=== PATIENT | female | born 1975 | race Caucasian/White ===

== ENCOUNTER → 2018-03-21 12:56 | Outpatient (CLI) | payer BC, SELFPAY | PROVIDERS: Family Provider Nurse Practitioner Family; PCP Nurse Practitioner Family; Visit Provider Orthopaedic Surgery | DX: M25.511 Pain in right shoulder (principal) | CPT/HCPCS: 73030 ==

== ENCOUNTER → 2018-03-27 15:02 | Outpatient (CLI) | payer BC, SELFPAY | PROVIDERS: Family Provider Nurse Practitioner Family; PCP Nurse Practitioner Family; Visit Provider Orthopaedic Surgery | DX: M75.101 Unspecified rotator cuff tear or rupture of right shoulder, not specified as traumatic (principal) | CPT/HCPCS: 73221 ==

== ENCOUNTER 2018-04-19 05:41 | Day surgery (SDC) | payer BC, SELFPAY ==
--- NOTE | 2018-04-17 15:24 | EKG12_ITS ---
Test Reason : PRE OP Blood Pressure : / mmHG Vent. Rate : 079 BPM Atrial Rate : 079 BPM P-R Int : 160 ms QRS Dur : 090 ms QT Int : 414 ms P-R-T Axes : 043 033 032 degrees QTc Int : 474 ms Normal sinus rhythm Normal ECG Confirmed by FERNANDO LOPEZ, SHAQ ([id number]), editor news DAIANA PAVON ([id number]) on 04/19/2018 3:18:18 PM Referred By: Susana Elder Confirmed By:SHAQ KING MD
[2018-04-17 16:03] LABS: Hematocrit 38.8 % (37-47); Hemoglobin 13.1 g/dl (12.0-15.0); Mean Corp Hgb Conc 33.8 g/gl (32-36); Mean Corpuscular Volume 91.7 fL (81-99); Mean Platelet Vol. 9.4 fl (6.2-12.0); Platelet Count 292 K/mm3 (150-450); RBC Distribution Width CV 12.7 % (11.6-14.6); RBC Distribution Width SD 41.8 fl (35.1-43.9); Red Blood Count 4.23 M/mm3 (4.2-5.4); White Blood Count 12.5 K/mm3 (4.4-11.0)
[2018-04-17 16:10] LABS: Scan Indicated on CBC? Y/N NO
[2018-04-17 16:32] LABS: Anion Gap 9 (5-15); BUN 11 mg/dL (7-18); BUN/Creat Ratio 13.3 RATIO (10-20); Calcium,Total 8.8 mg/dL (8.5-10.1); Chloride 101 mmol/L (98-107); Creatinine, Serum 0.83 mg/dL (0.55-1.02); EST Glomerular Filtration Rate 79 mL/min (>60); Est Glom Filt Rate - Afr Amer 96 mL/min (>60); Glucose 92 mg/dL (74-106); Potassium 3.6 mmol/L (3.5-5.1); Sodium Level 136 mmol/L (136-145)
[2018-04-19] VITALS (11 sets, daily range): BP systolic 82–128; BP diastolic 43–82; PULSE 55–84; RESP 16–18; TEMP 36.1–36.9; O2SAT 91–99; BMI 41.2
--- NOTE | 2018-04-19 | TESH_PTH ---
PATIENT: TONY ROQUE LOC: [facility] [place] U#:[id number] AGE/SX: 42/F ROOM: RE04/19/[address]: Dr. Susana Elder DO : 1975 BED: DIS: 04/19/2018 SPEC #: [id number] RECD: 04/19/18 15:17 STATUS: TONE ZULAY #: [id number] ERNESTO: 04/19/18 00:[address]: Susana Elder DEPT: SURGICAL PATHOLOGY RECD BY: Leland Haile ENTERED: 04/20/18 08:18 SP TYPE: TENDON OTHR DR: Denisse Tucker, CORSETIER-C Tissues: Tendon and tendon sheath, NOS Procedures: Surgery Specimen Level III HEADER OPERATION: Right shoulder, arthroscopy, rotator cuff repair, subacromial PRE-OP DIAGNOSIS: Complete tear of right rotator tear, subacromial impingement, biceps tendinosis TISSUE SUBMITTED: Right bicep tendon MICROSCOPIC DIAGNOSIS Right biceps tendon, excision: Tendon with degenerative change. AM:raquel 04/21/18 MICROSCOPIC DESCRIPTION Slides are reviewed. GROSS DESCRIPTION Received in fixative is one container labeled with the patient's name and designated right bicep tendon. The specimen consists of a piece of kam tendinous tissue measuring 2 x 0.6 x 0.1 cm. The entire specimen is submitted in one cassette. / SJ:raquel 04/20/18 TC:5 CPT: 14538
--- NOTE | 2018-04-19 07:36 | PCM.DC.ORTHO ---
Discharge Diet: No Restrictions - remove dressings in 4 days and apply bandaids to incision sites, may get incision wet after 4 days, brace at all times unless dangling arm or doing pendulums, may do pendulums daily, no active overhead arm motion, follow up in 2 weeks in office, call with concerns Discharge Activity: May Not Drive May shower in (days): 1 Ice area for (Minutes): 20 - Every hour while awake. Weight Bearing Status: Weight bearing as tolerated Keep extremity elevated above heart level: Operative Extremity Call your doctor if your incision/area has: Continuous Slow Oozing, Sudden Increased Bleeding, Increased Pain/ Swelling, Increased Redness, Foul Smelling Discharge Call your doctor if you observe: Fever of 101 or Higher, Coldness, Increased Pain, Numbness or Tingling, Change in Color, Calf discomfort Allergies/Adverse Reactions: Allergies cefaclor [From Ceclor] Allergy (Verified 04/14/18 11:14) Anaphylaxis diphenhydramine [From Benadryl] Allergy (Verified 04/14/18 11:14) Anaphylaxis Sulfa (Sulfonamide Antibiotics) Allergy (Verified 04/14/18 11:14) rash Medications to take at Discharge albuterol sulfate HFA 90 mcg/actuation aerosol inhaler 2 puff INHALATION Q6H PRN 03/21/18 aspirin 81 mg tablet,delayed release 81 mg PO QDAY 03/21/18 cetirizine 10 mg capsule 10 mg PO QDAY 03/21/18 fluoxetine 20 mg capsule 20 mg PO QDAY 03/21/18 folic acid 1 mg tablet 1 mg PO QDAY 03/21/18 glucosamine sulfate 1,000 mg capsule 1,000 mg PO BID 03/21/18 lisinopril 20 mg-hydrochlorothiazide 25 mg tablet 1 tab PO QDAY 03/21/18 melatonin 5 mg capsule 5 mg PO QHS PRN PRN 03/21/18 meloxicam 15 mg tablet 15 mg PO QDAY PRN 03/21/18 montelukast 10 mg tablet 10 mg PO QPM 03/21/18 omeprazole 20 mg tablet,delayed release 20 mg PO QDAY 03/21/18 simvastatin 10 mg tablet 10 mg PO QPM 03/21/18 Beclomethasone Dipropionate [Qvar Redihaler] 1 spray IH BID 04/14/18 Fluticasone 0.05% [Flonase Nasal [place]] 1 spray NASAL DAILY 04/14/18 Oxycodone HCl/Acetaminophen [Percocet 5/325] 1 - 2 tablet PO Q6H PRN PRN 5 Days #42 tablet 04/19/18 Zolpidem Tartrate [Ambien (Generic)] 5 mg PO QHS PRN PRN #14 tablet 04/19/18 The following prescriptions were given: Oxycodone HCl/Acetaminophen [Percocet 5/325] 1 - 2 tablet PO Q6H PRN PRN 5 Days #42 tablet PRN Reason: Pain Zolpidem Tartrate [Ambien (Generic)] 5 mg PO QHS PRN PRN #14 tablet PRN Reason: Insomnia Primary Care Physician: Denisse Tucker NP-C [Primary Care Provider] - Test Results: Test results from this visit will be discussed in further detail at your follow-up appointment, if applicable. Please Follow Up With: Susana Elder, DO - [phone]
--- NOTE | 2018-04-19 07:37 | PCM.OPRPT ---
Report of Operation Date of Procedure: 04/19/18 Pre-Operative Diagnosis: right shoulder massive retracted rotator cuff tear, biceps tendinosis/tear, subacromial impingment Post-Operative Diagnosis: same Surgery/Procedure Performed:: sars, rotator cuff repair, subacromial decompression/acromioplasty, open subpec biceps tenodesis outside machinist apprentice: Armando Reddy Type of Anesthesia:: General/Regional Anesthesiologist: Ramon Irvin Specimen's removed: biceps tendon Estimated Blood Loss (mL): none Fluids Replaced: 1500ml lr Description of Procedure: Preoperative note Patient is a 42-year-old female sustained an injury to her right shoulder is unable to elevate her arm without pain and weakness. MRI confirms retracted rotator cuff tear and a split biceps tear as well as some bursitis. Risks benefits and alternatives surgery discussed with patient. Risks include but not limited to blood loss, blood clot, infection, neurovascular, failure procedure, loss of life and loss of limb. Patient is aware like proceed with right shoulder arthroscopy repair is indicated. Operative note Patient seen and examined preoperative holding area. Right shoulder was marked. Patient brought to the operating room placed supine the operating table. Signing, anesthesia, antibiotics were administered. The right arm was prepped and draped in usual sterile fashion after beachchair positioning was maintained. Please note that senior living through beachchair position we did recheck her blood pressure which was stable throughout. All bony prominences were well-padded SCDs placed on her bilateral extremity. Please note that preoperatively in the preop holding area patient did receive a block. We then marked out our bony landmarks for our portal placement. Timeout was performed. We then insufflated the glenohumeral joint from the posterior aspect. We had good return we created our posterior portal with 11 blade began our diagnostic arthroscopy. The glenohumeral joint was intact. The subscap was intact there were no loose bodies in the inferior recess her biceps had a solid loosely tear at the insertion and the rotator cuff was torn and retracted. Then created an anterior portal under direct visualization. We then able to release the biceps from its insertion and debrided back the insertion on the labral aspect to a stable rim. We then moved to the subacromial space. We created a lateral portal under direct visualization. We were able to then use a tendon graft. To visualize the tear was more of an L-shaped pattern and it was reapproximated with marginal convergence stitches. We debrided back the insertion and did a speed bridge Arthrex technique in standard technique. We had debrided the insertion of the the footprint initially with a burner and then with a bur. We then inserted our 2 proximal screw suture anchors after doing a marginal convergence we had good approximation of our marginal convergence we then placed her to suture anchors just lateral to the articular surface place our sutures through the tear and then performed our lateral row. We had we also used the sutures are in the lateral row suture fixation to also bring back some of the tissue further together as well which had a nice coverage of our footprint. We irrigated the shoulder with copious nonsterile saline we then moved to our subpectoral tenodesis. We reprepped the area waited the allotted 3 minutes. We then used a 15 blade cut through the skin about 2-1/2 cm length incision and dissected down times the level of the biceps tendon which was brought out of the incision. After his body incision we truncated to approximately and then using the Arthrex pec button insertion system in standard technique flipped the button in the medullary canal of the humerus and then oversewed the tendon to the periosteum with the free limbs. We then irrigated the incision with copious amounts of sterile saline. The incision was closed with 3-0 Vicryl and running 4-0 Monocryl and the portals were closed closed with interrupted 4-0 nylon suture sterile dressings and UltraSling was applied to the right arm. Sterile patient tolerated procedure well there are no comp occasions transferred to recovery room in stable condition. Next Postoperative note Pharmacy has prescriptions as We will give patien pictures in 2 weeks Call with increased pain numbness tingling or further issues arise This note was generated with bead Buttonation software. It may contain incorrect words, spelling, and punctuation that were not noted in checking the note before signing.
[2018-04-19] MEDS: Mupirocin Ointment 22gm Tube 1 APPLIC (09:48)
== END 2018-04-19 14:09 | disposition home or self-care (01) ==
LOC: SDC 05:43 → AC 05:45
PROVIDERS: Family Provider Nurse Practitioner Family; PCP Nurse Practitioner Family; Visit Provider Orthopaedic Surgery
PROC: (CPT 29827; principal; 2018-04-19 07:10)
DX: M75.121 Complete rotator cuff tear or rupture of right shoulder, not specified as traumatic (principal); M75.41 Impingement syndrome of right shoulder; S46.211A Strain of muscle, fascia and tendon of other parts of biceps, right arm, initial encounter; J45.909 Unspecified asthma, uncomplicated; I10 Essential (primary) hypertension; F17.200 Nicotine dependence, unspecified, uncomplicated; K21.9 Gastro-esophageal reflux disease without esophagitis; E78.00 Pure hypercholesterolemia, unspecified; F32.9 Major depressive disorder, single episode, unspecified; Z86.2 Personal history of diseases of the blood and blood-forming organs and certain disorders involving the immune mechanism; Z79.51 Long term (current) use of inhaled steroids; Z79.82 Long term (current) use of aspirin; Z79.899 Other long term (current) drug therapy; M75.21 Bicipital tendinitis, right shoulder; X58.XXXA Exposure to other specified factors, initial encounter; Y93.9 Activity, unspecified; Y92.9 Unspecified place or not applicable; Y99.9 Unspecified external cause status
CPT/HCPCS: 23430; 29826; 29827; 36415; 80048; 85027; 88304; 93005; J7120; J2405

== ENCOUNTER → 2020-02-12 | Outpatient (CLI) | payer BC, SELFPAY ==
--- NOTE | 2020-02-12 12:34 | RAD_ITS ---
STUDY: X-RAY - LEFT SHOULDER REASON FOR EXAM: Pain. TECHNIQUE: 4 view(s) of the shoulder. COMPARISON: None. FINDINGS: Normal glenohumeral articulation. Normal acromioclavicular joint. Normal acromion. Normal humeral head and visualized proximal humerus. The soft tissue structures are unremarkable. Normal visualized pulmonary apex. RAD/Shoulder min 2 Views IMPRESSION: Normal x-ray examination of the left shoulder. Electronically Signed: Nikunj Lowe MD at 13:41 EDT Tel , Service support ,
--- NOTE | 2020-02-12 12:59 | RAD_ITS ---
HISTORY: LEFT SHOULDER AND POSTERIOR NECK PAIN COMPARISON: None FINDINGS: # of images incl. paperwork: 3 3 views of the cervical spine. Findings: Degenerative malalignment is present. C3 is anteriorly subluxed on C4. C5 is posteriorly subluxed on C6. C6 is posteriorly subluxed on C7. The subluxations are minimal and by a few millimeters. Degenerative disc disease is greatest at the C5-C6 level. At this level there is obliteration of the displaced, endplate sclerosis, and enthesophytes. Enthesophytes are present at C3-C4 C5-C6 and C7. Facet arthropathy is present. Uncovertebral hypertrophy is present at the C7 C6 and C5 levels. Prevertebral and paraspinal soft tissues are normal. RAD/Cerv Spine 2 or 3 Views IMPRESSION: Multilevel degenerative disc disease. No acute fracture. Degenerative malalignment. Uncovertebral hypertrophy with facet arthropathy. at 0556 Reported and signed by: Lamin Phillip MD Electronically Signed: Lamin Phillip MD at 5:55 EDT Tel , Service support ,
== END | disposition home or self-care (01) ==
LOC: HPRAD 12:34
PROVIDERS: PCP Nurse Practitioner Family; Referring Provider Orthopaedic Surgery; Visit Provider Orthopaedic Surgery
DX: M25.512 Pain in left shoulder (principal); R20.0 Anesthesia of skin; R20.2 Paresthesia of skin
CPT/HCPCS: 72040; 73030

== ENCOUNTER → 2020-02-28 | Outpatient (CLI) | payer BC, SELFPAY ==
--- NOTE | 2020-02-28 15:52 | MRI_ITS ---
STUDY: MRI LEFT SHOULDER REASON FOR EXAM: Left shoulder pain for 8 months, left hand numbness/tingling. TECHNIQUE: Standardized fat and water weighted pulse sequences were obtained in all 3 orthogonal planes. COMPARISON: Radiographs 02/12/2020. FINDINGS: There is mild supraspinatus and infraspinatus tendinosis (T2 sagittal images 18, 19) without discrete tendon tear. Normal subscapularis tendon. Normal teres minor tendon. Normal supraspinatus muscle. Normal infraspinatus muscle. Normal subscapularis muscle. Normal teres minor muscle. Normal glenohumeral articulation. There is an enchondroma in the humeral head (T2 coronal image 10) measuring 1 cm in transverse dimension. Normal biceps labral complex. Normal intracapsular long biceps tendon. Normal labrum. Normal capsulo- ligamentous complex. Normal acromioclavicular articulation. There is a small ossicle at the anterior aspect of the acromium (T2 axial image 1). There is a Type II morphology (curved), with a neutral orientation. There is a very small volume of subacromial-subdeltoid bursal fluid (T2 coronal images 10-13). There is thickening of the coracoacromial ligament (T2 sagittal image 11). Normal deltoid muscle. Normal trapezius muscle. MRI/Upper Ext Joint Only(Routine) IMPRESSION: Mild supraspinatus and infraspinatus tendinosis without demonstrated rotator cuff tear. Very mild subacromial-subdeltoid bursitis. Thickening of the coracoacromial ligament. Small enchondroma in the humeral head. Electronically Signed: Nikunj Lowe MD at 8:33 EDT Tel , Service support ,
== END | disposition home or self-care (01) ==
LOC: MRI 15:52
PROVIDERS: PCP Nurse Practitioner Family; Referring Provider Orthopaedic Surgery; Visit Provider Orthopaedic Surgery
DX: M75.42 Impingement syndrome of left shoulder (principal); M75.102 Unspecified rotator cuff tear or rupture of left shoulder, not specified as traumatic
CPT/HCPCS: 73221

== ENCOUNTER → 2020-04-09 | Outpatient (CLI) | payer BC, SELFPAY ==
--- NOTE | 2020-04-09 13:30 | NEURO ---
NCS and/or EMG Patient Report Ordering Doctor: Susana Elder DATE OF SERVICE: 04/09/20 Rae Arevalo presents for electrodiagnostic testing of the left upper limb. She reports shoulder pain with recent onset numbness and tingling in the left hand. Electrodiagnostic findings: Left median motor nerve demonstrates normal distal latency, amplitude and conduction velocity. Normal left ulnar motor response, including conduction across the elbow. Normal left median and ulnar F waves. Sensory responses are within normal limits. On needle EMG, all muscles tested the left upper limb showed no evidence of denervation with normal motor unit action potentials. Electrodiagnostic assessment: This is a normal electrodiagnostic study of the left upper limb. There is no electrodiagnostic evidence for peripheral neuropathy, including carpal tunnel or cubital tunnel syndrome. There is no electrodiagnostic evidence for cervical radiculopathy. If there are any further questions, please do not hesitate to contact me.
== END | disposition home or self-care (01) ==
LOC: PSN 08:40
PROVIDERS: Anesthesiology; PCP Nurse Practitioner Family; Referring Provider Orthopaedic Surgery; Visit Provider Orthopaedic Surgery
DX: R20.0 Anesthesia of skin (principal); R20.2 Paresthesia of skin; Z11.59 Encounter for screening for other viral diseases
CPT/HCPCS: 87635; 95886; 95910; U0003

== ENCOUNTER 2020-05-07 08:40 | Day surgery (SDC) | payer BC, SELFPAY ==
--- NOTE | 2020-04-09 08:43 | EKG12_ITS ---
Test Reason : PRE-OP Blood Pressure : / mmHG Vent. Rate : 075 BPM Atrial Rate : 075 BPM P-R Int : 164 ms QRS Dur : 092 ms QT Int : 398 ms P-R-T Axes : 046 031 030 degrees QTc Int : 444 ms Normal sinus rhythm Normal ECG Confirmed by KVNG LOPEZ, COLUMBA ([id number]), editor newspaper HOLLY JUAREZ ([id number]) on 04/11/2020 1:29:54 PM Referred By: Susana Elder Confirmed By:HE CALDERON MD
[2020-04-09 09:27] LABS: Hematocrit 36.7 % (37-47); Hemoglobin 11.5 g/dL (12.0-15.0); Mean Corp Hgb Conc 31.3 g/dL (32-36); Mean Corpuscular Hgb 26.2 pg (27.0-32.0); Mean Corpuscular Volume 83.6 fL (81-99); Platelet Count 349 K/mm3 (150-450); RBC Distribution Width CV 16.7 % (11.6-14.6); RBC Distribution Width SD 50.5 fl (35.1-43.9); Red Blood Count 4.39 M/mm3 (4.2-5.4); White Blood Count 9.1 K/mm3 (4.4-11.0)
[2020-04-09 09:58] LABS: Anion Gap 5 (5-15); BUN 13 mg/dL (7-18); BUN/Creat Ratio 17.3 RATIO (10-20); Calcium,Total 8.7 mg/dL (8.5-10.1); Chloride 105 mmol/L (98-107); Creatinine, Serum 0.75 mg/dL (0.55-1.02); EST Glomerular Filtration Rate 88 mL/min (>60); Est Glom Filt Rate - Afr Amer 107 mL/min (>60); Glucose 127 mg/dL (74-106); Potassium 3.4 mmol/L (3.5-5.1); Sodium Level 136 mmol/L (136-145)
[2020-05-07] VITALS (7 sets, daily range): BP systolic 143–157; BP diastolic 82–99; PULSE 79–91; RESP 16–18; TEMP 36.3–37.1; O2SAT 92–99; BMI 40.6
--- NOTE | 2020-05-07 06:30 | HP_ITS ---
I have re-examined the patient. There are no clinical changes since date of exam. Intake Intake Visit Reasons: left shoulder Accompanied by: Self Is patient in pain?: Yes Pain scale (1-10): 2 Allergies cefaclor [From Ceclor] Allergy (Verified 04/29/20 10:32) Anaphylaxis diphenhydramine [From Benadryl] Allergy (Verified 04/29/20 10:32) Anaphylaxis Sulfa (Sulfonamide Antibiotics) Allergy (Verified 04/29/20 10:32) rash Medications albuterol sulfate 90 mcg/actuation aerosol inhaler 2 puff INHALATION Q6H PRN 03/21/18 [History Confirmed 04/29/20] aspirin 81 mg tablet,delayed release 81 mg PO QDAY 03/21/18 [History Confirmed 04/29/20] cetirizine 10 mg capsule 10 mg PO QDAY 03/21/18 [History Confirmed 04/29/20] fluoxetine 20 mg capsule 20 mg PO QDAY 03/21/18 [History Confirmed 04/29/20] folic acid 1 mg tablet 1 mg PO QDAY 03/21/18 [History Confirmed 04/29/20] glucosamine sulfate 1,000 mg capsule 1,000 mg PO BID 03/21/18 [History Confirmed 04/29/20] lisinopril 20 mg-hydrochlorothiazide 25 mg tablet 1 tab PO QDAY 03/21/18 [History Confirmed 04/29/20] melatonin 5 mg capsule 5 mg PO QHS PRN PRN 03/21/18 [History Confirmed 04/29/20] montelukast 10 mg tablet 10 mg PO QPM 03/21/18 [History Confirmed 04/29/20] omeprazole 20 mg tablet,delayed release 20 mg PO QDAY 03/21/18 [History Confirmed 04/29/20] simvastatin 10 mg tablet 20 mg PO QPM 03/21/18 [History Confirmed 04/29/20] Fluticasone 0.05% [Flonase Nasal [place]] 1 spray NASAL DAILY 04/14/18 [History Confirmed 04/29/20] gabapentin 300 mg capsule 300 mg PO BID 02/12/20 [History Confirmed 04/29/20] Fluticasone/Salmeterol [Advair 250-50 Diskus] 1 ea IH BID 04/03/20 [History Confirmed 04/29/20] Meloxicam [Mobic] 15 mg PO DAILY 04/03/20 [History Confirmed 04/29/20] [place]-3 Acid Ethyl Esters [Lovaza] 2 gm PO BID 04/03/20 [History Confirmed 04/29/20] PFSH Medical History (Updated 04/19/18 @ 10:[address] Susana Elder DO) Asthma (Acute) Hypertension (Chronic) Surgical History (Updated 05/02/18 @ 13:45 by Yulissa Orellana) Hx laparoscopic cholecystectomy (Acute) Tubal ligation status (Acute) h/o right shoulder surgery (Acute) h/o tonsilectomy (Acute) Social History (Updated 04/29/20 @ 12:[address] Susana Elder, ) Smoking Status: Current some day smoker second hand exposure: No alcohol intake: current alcohol intake frequency: holidays/special occasions only Alcohol type: beer substance use type: does not use what type of physical activity do you participate in: none HPI left shoulder: Surgical H&P: Yes Details: Parts of this documentation were recorded by a scribe, this documentation accurately reflects the service provided and the decisions made by me, Dr. Susana Elder, 04/29/20 1022. TONY ROQUE is a 44 year old F here today for her pre-op appointment for her left shoulder. To re-sign a surgical consent for left shoulder arthroscopy. Scheduled for 05/07/2020. She has previously done injections, physical therapy at home and oral medications. Pain is entire shoulder, with some radiation of pain into anterior biceps. Pain/discomfort is rated 2/10 from the pain scale. Patient has used ice packs and heat applications which provided some relief. Patient has been unable to work d/t performing her essential functions. Patient has her COVID 19 test before arriving in our office today. ROS Const Reports system reviewed and no additional complaints, except as docu, Denies body aches, Denies chills, Denies fatigue, Denies fever(s), Reports weakness Card Reports system reviewed and no additional complaints, except as docu, Denies chest pain, Denies shortness of breath Resp Reports system reviewed and no additional complaints, except as docu, Denies chest congestion, Denies cough, Denies shortness of breath Musc Reports system reviewed and no additional complaints, except as docu, Reports joint pain, Denies joint swelling, Reports numbness (left hand), Denies stiffness, Denies tingling Skin/Breast Reports system reviewed and no additional complaints, except as docu, Denies dry skin, Denies redness, Denies lesions, Denies new lesions, Denies non-healing lesions, Denies itching, Denies rash, Denies skin ulcer, Denies sores, Denies unusual bruising, Denies wounds Neuro Yes system reviewed and no additional complaints, except as docu, Yes numbness (left hand), No tingling, No tremor(s), Yes weakness Endo Denies fatigue Ortho Exam Left Shoulder Contralateral Normal: Yes Testing: Yes Hawkin's, Yes Neer's, Yes Speed's, Yes TTP Biceps, Yes AROM-Forward Elevation 0-180, Yes AROM-External Rotation at 90 0-60, Yes AROM-External Rotation at side 0-60, Yes PROM-Forward Elevation 0-180, Yes PROM-External Rotation at side 0-60, Yes PROM-External Rotation at 90 0-60 Internal Rotation: L3 Assessment & Plan Problems 1. Impingement syndrome, shoulder, left M75.42 Plan Reviewed the pre-operative plans with the patient. Risks and benefits of the procedure were fully explained, including but not limited to infection, neurovascular injury, continued pain, arthritis, stiffness, need for further surgery, re-injury, DVT, PE, general risks of anesthesia, and loss of limb or life. The patient understands all the risks and does wish to proceed with written consent. Explained she may lose 15 degrees in internal supination. Discussed may do a tenotomy instead. Advised to self quarantine after her COVID test today, to not risk being exposed before her surgery. We discussed the current risk associated COVID-19. While it is understood that there is a community spread of COVID 19 the risk of nicole COVID-19 while at [facility] is very low, however, the risk cannot be completely mitigated because of the community spread of the disease. We discussed in detail the risk of exposure to and or potential harm posed by the COVID-19 virus with having a surgery/procedure at this time versus the risk of delaying the surgery/procedure. Is not possible to know either the risk of delaying the surgery procedure or chance of getting an infection with perfect accuracy, but a joint decision was made to proceed at this time with a schedule surgery/procedure as indicated on the consent form. Patient was notified that we will need to comply with any screening or testing [facility] wishes to perform or that surgery may be delayed for any positive results. Advised the least amount of time she may be off work depending on her surgery may be two weeks to three months. All questions answered. Patient in agreement of plan. Coding Level of Care Code Off vis,est,level 4 Diagnoses Impingement syndrome, shoulder, left M75.42
[2020-05-07] MEDS: Lactated Ringers 1,000 ML 100 ML IV ×2 (09:17→10:16)
--- NOTE | 2020-05-07 10:06 | DCINST_ITS ---
Discharge Diet: No Restrictions - may remove dressings in 4 days and apply Band-Aids to incision sites, may remove sling to do pendulum exercises only, may get incision wet in shower after 4 days, follow-up in 2 weeks or sooner if other issues arise, do not actively elevate shoulder Discharge Activity: May Not Drive May shower in (days): 1 Ice area for (Minutes): 20 - Every hour while awake. Weight Bearing Status: Weight bearing as tolerated Keep extremity elevated above heart level: Operative Extremity Call your doctor if your incision/area has: Continuous Slow Oozing, Sudden Increased Bleeding, Increased Pain/ Swelling, Increased Redness, Foul Smelling Discharge Call your doctor if you observe: Fever of 101 or Higher, Coldness, Increased Pain, Numbness or Tingling, Change in Color, Calf discomfort Allergies/Adverse Reactions: Allergies cefaclor [From Ceclor] Allergy (Verified 05/07/20 09:09) Anaphylaxis diphenhydramine [From Benadryl] Allergy (Verified 05/07/20 09:09) Anaphylaxis Sulfa (Sulfonamide Antibiotics) Allergy (Verified 05/07/20 09:09) rash Medications to take at Discharge albuterol sulfate 90 mcg/actuation aerosol inhaler 2 puff INHALATION Q6H PRN 03/21/18 aspirin 81 mg tablet,delayed release 81 mg PO QDAY 03/21/18 cetirizine 10 mg capsule 10 mg PO QDAY 03/21/18 fluoxetine 20 mg capsule 20 mg PO QDAY 03/21/18 folic acid 1 mg tablet 1 mg PO QDAY 03/21/18 glucosamine sulfate 1,000 mg capsule 1,000 mg PO BID 03/21/18 lisinopril 20 mg-hydrochlorothiazide 25 mg tablet 1 tab PO QDAY 03/21/18 melatonin 5 mg capsule 5 mg PO QHS PRN PRN 03/21/18 montelukast 10 mg tablet 10 mg PO QPM 03/21/18 omeprazole 20 mg tablet,delayed release 20 mg PO QDAY 03/21/18 simvastatin 10 mg tablet 20 mg PO QPM 03/21/18 Fluticasone 0.05% [Flonase Nasal [place]] 1 spray NASAL DAILY 04/14/18 gabapentin 300 mg capsule 300 mg PO BID 02/12/20 Fluticasone/Salmeterol [Advair 250-50 Diskus] 1 ea IH BID 04/03/20 Meloxicam [Mobic] 15 mg PO DAILY 04/03/20 [place]-3 Acid Ethyl Esters [Lovaza] 2 gm PO BID 04/03/20 Oxycodone HCl/Acetaminophen [Percocet 5/325] 1 - 2 tab PO Q6H PRN PRN 5 Days #28 tab 05/07/20 Zolpidem Tartrate [Ambien (Generic)] 5 mg PO QHS PRN PRN #14 tab 05/07/20 The following prescriptions were given: Zolpidem Tartrate [Ambien (Generic)] 5 mg PO QHS PRN PRN #14 tab PRN Reason: Insomnia Transmission Status: Sent to [facility] Oxycodone HCl/Acetaminophen [Percocet 5/325] 1 - 2 tab PO Q6H PRN PRN 5 Days #28 tab PRN Reason: Pain Transmission Status: Sent to [facility] Primary Care Physician: Denisse Tucker PATENTS EXAMINER, PATENTS EXAMINER-C [Primary Care Provider] - Test Results: Test results from this visit will be discussed in further detail at your follow- up appointment, if applicable. Please Follow Up With: Susana Elder, DO - [phone]
--- NOTE | 2020-05-07 10:06 | PCM.OPRPT ---
Report of Operation Date of Procedure: 05/07/20 Pre-Operative Diagnosis: left shoulder rotator cuff tear, subacromial impingment syndrome, Post-Operative Diagnosis: same Surgery/Procedure Performed:: sals, rotator cuff repair, sad/acromioplasty director software: Armando Reddy Type of Anesthesia:: General/Regional Anesthesiologist: Ramon Irvin Estimated Blood Loss (mL): min Fluids Replaced: 1200cc lr Description of Procedure: Preop note Patient is a 44-year-old female with continued left shoulder pain and weakness. MRI confirms a questionable rotator cuff tear will tear and subacromial bursitis. Risk benefits and alternatives were discussed with patient. Risk include but not limited to blood loss, blood clot, infection, neurovascular, failure procedure, loss of life and loss of limb. Patient is aware like proceed with left shoulder arthroscopy repair as indicated. Operative note Patient seen and examined preoperative holding area. Left shoulder was marked. Patient brought to the operating room placed supine on the operating table. Signed, anesthesia, antibiotics were administered. patient was placed in beachchair positioning all bony problems well-padded SCDs placed on bilateral lower extremity. Care Home through beachchair position we did recheck her blood pressure which was stable throughout. Left arm was prepped and draped usual sterile technique. We marked out our bony landmarks and our portal placement. Timeout was performed. We then insufflated the joint from the posterior aspect we had good return of the fluid. We then created a posterior portal with 11 blade began our diagnostic arthroscopy. We created anterior portal under direct visualization. There was extensive rotator cuff fraying on the undersurface of the arch articular surface. The subscap was intact there were no loose bodies in the inferior recess and the biceps labrum junction was intact and there was no erythema in the biceps tendon was pulled further into the joint. We then did a rotator cuff debridement on the undersurface to better visualize the tear. We marked out the tear with a spinal needle and then moved to the subacromial space. We created a lateral portal and direct visualization. Patient had extensive bursitis was quite thickened and hyperemic anterior and laterally. We resected back with a combination of shaver and a burner. We then were able to visualize our tear and our spinal needle was then removed. It was a full-thickness tear. We then trim back any loose pieces of the rotator cuff that had been a little bit of redundant on the second wave delamination it was folded over and this was debrided back. We then debrided back to bed for the rotator cuff repair combination of both shaver burner and a bur. We then placed a 5 5 bio composite suture anchor double loaded. We placed our sutures sequentially anterior to posterior and then tied them as well. At that point we had good coverage of the footprint backed. That point decided make it to do also a lateral row. We did a suture anchor was to the lock 4.75 in standard technique laterally and we had further coverage of our footprint with no tension with a tensionless repair. The shoulder was irrigated with copious nonsterile amounts of sterile saline. The portals were closed with interrupted 4-0 nylon stitches. Sterile dressings were applied a sling was applied to the left shoulder. Patient taught procedure well no complication transfer recovery room stable condition. Postoperative note Nonweightbearing left arm Pharmacy has prescriptions Call with increased pain numbness tingling or other issues arise Follow-up on Tuesday with Isai for dressing change This note was generated with [employer] dictation software. It may contain incorrect words, spelling, and punctuation that were not noted in checking the note before signing.
[2020-05-07] MEDS: Mupirocin Ointment 22gm Tube 1 APPLIC (10:28)
[2020-05-07] MEDS: Epinephrine (1 mg/ml) 1 MG/ML VIAL (10:28)
[2020-05-07] MEDS: HYDROcodone Bitartrate/Apap 5/325 Tablet PO (14:09)
== END 2020-05-07 14:51 | disposition home or self-care (01) ==
LOC: SDC 08:41 → AC 08:41
PROVIDERS: Anesthesiology; PCP Nurse Practitioner Family; Referring Provider Orthopaedic Surgery; Visit Provider Orthopaedic Surgery
PROC: (CPT 29827; principal; 2020-05-07 10:20)
DX: M75.42 Impingement syndrome of left shoulder (principal); M75.102 Unspecified rotator cuff tear or rupture of left shoulder, not specified as traumatic; J45.909 Unspecified asthma, uncomplicated; I10 Essential (primary) hypertension; F17.200 Nicotine dependence, unspecified, uncomplicated; K21.9 Gastro-esophageal reflux disease without esophagitis; E78.00 Pure hypercholesterolemia, unspecified; F32.9 Major depressive disorder, single episode, unspecified; Z11.59 Encounter for screening for other viral diseases; Z79.1 Long term (current) use of non-steroidal anti-inflammatories (NSAID); Z79.51 Long term (current) use of inhaled steroids; Z79.899 Other long term (current) drug therapy
CPT/HCPCS: 01630; 29826; 29827; 36415; 80048; 85027; 87635; 93005; C9803; J7120; C1713; J2405; U0003

== ENCOUNTER → 2023-04-20 | Outpatient (CLI) | payer OTHER, SELFPAY ==
--- NOTE | 2023-04-20 14:51 | NEURO_ITS ---
NCS and/or EMG Patient Report Ordering Doctor: Kyler Gutiérrez DATE OF SERVICE: 04/20/23 Doris presents for electrodiagnostic testing of the upper limbs. She reports muscle fatigue in the arms with tingling in the hands. Electrodiagnostic Findings: Left median motor nerve demonstrates normal distal latency, amplitude and conduction velocity. Right median motor nerve demonstrates normal distal latency, amplitude and conduction velocity. There is a's slowing of ulnar motor conduction velocity across the right elbow. Normal median and ulnar F waves. Normal left ulnar motor response. Sensory responses are within normal limits. Needle EMG, muscles tested in upper limb showed no evidence of denervation with normal motor unit action potentials. Electrodiagnostic impression: This is an abnormal study in the upper limbs. 1. 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 2. Electrodiagnostic evidence is noted for median neuropathy, including carpal tunnel syndrome. 3. There is no electrodiagnostic evidence for cervical radiculopathy Multi Select Codes Neurology Neurology Interp Codes: 33676-22 Musc test done w/n test comp (interp) (2) and 05404-11 Nrv cndj test 13/> studies (interp)
== END | disposition home or self-care (01) ==
LOC: PSN 13:22
PROVIDERS: PCP Nurse Practitioner Family; Referring Provider Psychiatry & Neurology Neurology; Visit Provider Psychiatry & Neurology Neurology
DX: R20.0 Anesthesia of skin (principal); R20.2 Paresthesia of skin
CPT/HCPCS: 95886; 95913

== ENCOUNTER → 2023-08-17 | Outpatient (CLI) | payer OTHER, SELFPAY ==
--- OUTSIDE RECORDS SUMMARY | 2023-08-17 12:23 | XMS RPT_ITS | CCD ---
Author Name Unknown Address [address] [place] [address] Organization [facility] Care Team Providers Care Joint Yarner Name Role Phone JUWAN CULP CNP Referring Unavailable CSERNYIKARAVIND DO Admitting Unavailable CSERNYIK, ARAVIND DO Primary Care Unavailable CSEARAVIND LEVINE DO Attending Unavailable JUWAN CULP CNP Consulting Unavailable PROVIDER, UNKNOWN Consulting Unavailable PROVIDER, UNKNOWN Consulting Unavailable JUWAN CULP CNP Admitting Unavailable JUWAN CULP CNP Primary Care Unavailable JUWAN CULP CNP Consulting Unavailable JUWAN CULP CNP Attending Unavailable PROVIDER, UNKNOWN Consulting Unavailable PROVIDER, UNKNOWN Consulting Unavailable JUWAN CULP CNP Attending Unavailable JUWAN CULP CNP Admitting Unavailable JUWAN CULP CNP Primary Care Unavailable JUWAN CULP CNP Consulting Unavailable PROVIDER, UNKNOWN Consulting Unavailable PROVIDER, UNKNOWN Consulting Unavailable JUWAN CULP CNP Referring Unavailable JACKIE MARTÍNEZ Admitting Unavailable MAURICIOJACKIE Primary Care Unavailable JACKIE MARTÍNEZ Attending Unavailable JUWAN CULP CNP Consulting Unavailable PROVIDER, UNKNOWN Consulting Unavailable PROVIDER, UNKNOWN Consulting Unavailable Allergies Allergy Classification Reported Allergen(s) Allergy Type Date of Onset Reaction(s) Facility (1 source) Cefaclor Drug Allergy [facility] Repository (1 source) diphenhydrAMINE Drug Allergy [facility] Repository (1 source) Sulfonamides (Antibiotic) Drug allergy (disorder) [facility] Repository Problems Problem Classification Problem Date Documented Da te Episodic/Chronic Essential hypertension (1 source) Essential (primary) hypertension; Translations: [Essential (primary) hypertension] Onset: 06-03-2023 Chronic Other connective tissue disease (1 source) Other muscle spasm; Translations: [Other muscle spasm] Onset: 06-03-2023 Episodic Other nutritional; endocrine; and metabolic disorders (1 source) Homocystinuria; Translations: [Homocystinuria] Onset: 06-03-2023 Chronic Other skin disorders (1 source) Generalized hyperhidrosis; Translations: [Generalized hyperhidrosis] Onset: 06-03-2023 Episodic Results Test Name Value Interpretation Reference Range Facil ity Encounters Encounter Date Encounter Type Care Provider Facility Start: 08-10-2023 End: 08-10-2023 ambulatory JUWAN WALL [facility] Start: 06-03-2023 End: 06-03-2023 ambulatory JUWAN WALL [facility] Start: 12-08-2022 End: 12-08-2022 Emergency department patient visit JUWAN WALL [facility] Start: 08-24-2022 End: 08-24-2022 Emergency department patient visit JUWAN WALL [facility] Payers Date Payer Category Payer Unknown [id number] 1975 Unknown [id number] 1975 Unknown [id number] 1975 Unknown [id number] Unknown [id number] Summary Purpose Family History No Family History Records FoundNo Family History Records FoundNo Family History Records FoundNo Family History Records Found Advance Directives No Advanced Directives Records FoundNo Advanced Directives Records FoundNo Advanced Directives Records FoundNo Advanced Directives Records Found Additional Source Comments INFORMATION SOURCE (unrecogn ized section and content) DATE CREATED AUTHOR AUTHOR'S ORGANIZ ATION 09/12/2021 [facility] ([place]) DATE CREATED AUTHOR AUTHOR'S ORGANIZ ATION 06/07/2023 [facility] DATE CREATED AUTHOR AUTHOR'S ORGANIZ ATION 08/10/2023 [facility] FOR RECORDS PERTAINING TO PATIENTS WHO ARE OR HAVE BEEN ENROLLED IN A CHEMICAL DEPENDENCY/SUBSTANCEABUSE PROGRAM, SOME INFORMATION MAY BE OMITTED. This clinical summary was aggregated from multiple sources. Caution should be exercised in using it in the provision of clinical care. This summary normalizes information from multiple sources, and as a consequence, information in this document may materially change the coding, format and clinical context of patient data. In addition, data may be omitted in some cases. CLINICAL DECISIONS SHOULD BE BASED ON THE PRIMARY CLINICAL RECORDS. [facility] provides no warranty or guarantee of the accuracy or completeness of information in this document.
--- NOTE | 2023-08-17 13:39 | NEURO ---
NCS and/or EMG Patient Report Ordering Doctor: ASHLEY OLIVERA DATE OF SERVICE: 08/17/23 Doris presents for electrodiagnostic testing of the lower limbs. She reports numbness in both legs and poor balance. She has ongoing lower back pain. Electrodiagnostic findings: Left peroneal motor nerve demonstrates normal distal latency, amplitude and conduction velocity. Right peroneal motor nerve demonstrates normal distal latency and amplitude with an approximately 30% drop in conduction across the fibular head left tibial motor nerve demonstrates normal distal latency with reduced amplitude. Right tibial motor responses within normal limits. Borderline prolonged left peroneal F-wave. H reflex is within normal limits. Sensory responses are normal. Needle EMG testing was performed in the lower limbs all muscles tested showed no evidence of denervation with normal motor unit action potentials. Electrodiagnostic impression: This is an abnormal study in the lower limbs. 1. Electrodiagnostic findings suggestive of right-sided peroneal neuropathy, with evidence of conduction block at the fibular head and left-sided tibial neuropathy with evidence of axonal loss. This may be suggestive of onset of polyneuropathy with primarily motor involvement. 2. There is no electrodiagnostic evidence for lumbosacral radiculopathy. Multi Select Codes Neurology Neurology Interp Codes: 25878-96 Musc test done w/n test comp (interp) (2) and 39234-97 Nrv cndj test 11-12 studies (interp)
== END | disposition home or self-care (01) ==
PROVIDERS: PCP Nurse Practitioner Family; Referring Provider Nurse Practitioner Adult Health; Visit Provider Nurse Practitioner Adult Health
DX: R26.81 Unsteadiness on feet (principal)
CPT/HCPCS: 95886; 95912